=== PATIENT | female | born 1955 | race Two or more races ===

== ENCOUNTER 2025-08-05 10:44 | Outpatient (CLI) | payer OTHER | END 2025-08-05 11:05 | disposition home or self-care (01) | LOC: RAD 10:44 | DX: B19.10 Unspecified viral hepatitis B without hepatic coma (principal); D50.9 Iron deficiency anemia, unspecified; Q79.1 Other congenital malformations of diaphragm; I80.8 Phlebitis and thrombophlebitis of other sites; I10 Essential (primary) hypertension; G47.33 Obstructive sleep apnea (adult) (pediatric); E11.40 Type 2 diabetes mellitus with diabetic neuropathy, unspecified; I47.10 Supraventricular tachycardia, unspecified; E03.9 Hypothyroidism, unspecified; Z68.32 Body mass index [BMI] 32.0-32.9, adult; I74.3 Embolism and thrombosis of arteries of the lower extremities; G95.20 Unspecified cord compression; R58 Hemorrhage, not elsewhere classified; J44.9 Chronic obstructive pulmonary disease, unspecified; R06.02 Shortness of breath; J45.40 Moderate persistent asthma, uncomplicated ==